=== PATIENT | female | born 1975 | race Caucasian/White ===

== ENCOUNTER → 2024-03-04 10:03 | Outpatient (REF) | payer OTHER, SELFPAY | LOC: HWWDC 10:03 | PROVIDERS: ATTENDING PHYSICIAN Physician Assistant Medical; FAMILY PHYSICIAN Family Medicine; REFERRING PHYSICIAN Nurse Practitioner Adult Health | DX: Z12.31 Encounter for screening mammogram for malignant neoplasm of breast (principal) | CPT/HCPCS: 77063; 77067 ==

== ENCOUNTER 2024-03-09 11:55 | Emergency (ER) | payer OTHER, SELFPAY ==
[2024-03-09 11:59] VITALS: BP 124/78
[2024-03-09 12:25] LABS: % Basophils 0.8 % (0-2); % Eosinophils 0.9 % (0-6); % Immature Granulocytes 0.4 % (0-0.5); % Lymphocytes 29.5 % (20.5-51.1); % Monocytes 8.8 % (1.7-9.3); % Neutrophils 59.6 % (42.2-75.2); Absolute Basophils 0.1 10^3/uL (0-0.2); Absolute Eosinophils 0.1 10^3/uL (0-0.7); Absolute Lymphocytes 2.2 10^3/uL (1.2-3.4); Absolute Monocytes 0.7 10^3/uL (0.1-0.6); Absolute Neutrophils 4.5 10^3/uL (1.4-6.5); Hematocrit 32.5 % (37.0-47.0); Hemoglobin 10.6 g/dL (12.0-16.0); Mean Corp Hgb Conc. 32.6 g/dL (33.0-37.0); Mean Corpuscular Hgb 26.4 pg (27.0-31.0); Mean Corpuscular Volume 80.8 fL (81.0-99.0); Mean Platelet Volume 10.7 fL (7.4-10.4); Nucleated Red Blood Cells % 0 %; Platelet Count 253 10^3/uL (130-400); Red Blood Cell Count 4.02 10^6/uL (4.20-5.40); Red Cell Dist. Width 13.5 % (11.5-14.5); White Blood Cell Count 7.5 10^3/uL (4.8-10.8)
[2024-03-09 12:34] LABS: PT 12.4 Sec (11.4-14.6)
[2024-03-09 12:39] LABS: ALT (SGPT) 20 U/L (0-35); AST (SGOT) 22 U/L (14-36); Albumin 4.1 g/dl (3.5-5.0); Alkaline Phosphatase 65 U/L (38-126); Blood Urea Nitrogen 13 mg/dl (7-17); Calcium 8.4 mg/dl (8.4-10.2); Carbon Dioxide 22 mmol/L (22-30); Chloride 103 mmol/L (98-107); Glucose 93 mg/dl (70-99); Potassium 4.4 mmol/L (3.5-5.1); Sodium 135 mmol/L (135-145); Total Bilirubin 0.3 mg/dl (0.2-1.3); eGFR > 60.00
--- NOTE | 2024-03-09 14:34 | ED.GENMED ---
History of Present Illness
General
Chief Complaint: DVT/Possible Blood Clot
Source: patient
Exam Limitations: none
Time Seen by Provider: 03/09/24 13:23
Nursing documentation reviewed up to this point in time: agreed with
History of Present Illness
History of Present Illness:
Patient is a 48-year-old female with past medical history of bariatric surgery, GERD, IBS, remote history of left lower extremity DVT which was provoked by travel/immobility not currently anticoagulated, who presents to the emergency department for
evaluation of left calf pain that started yesterday. Patient denies any known trauma, injury, overuse. Patient reports that she was recently started on exogenous hormones for perimenopause. She notes that she also traveled to [place]
approximately 9 days ago. Patient denies any swelling to the lower extremities. Patient denies any recent chest pain or shortness of breath.
Past History
Past History
ED Past Medical History: Asthma, GERD, Hypercholesterolemia, Psychiatric (Depression), Other (Cervical radiculopathy, left; chronic sinusitis), Other (Migraine headaches) and Other (DVT diagnosed 2017)
ED Past Surgical History: Other (Endoscopic sinus surgery. Gastric sleeve surgery 2012)
Patient has exhibited threatening behavior?: No
Social History
Tobacco: Non-smoker
Alcohol: Occasional
Drug: None
Personal:
Living: with family
Employment: Employed
Family History
Family History: Negative Early CAD
Review of Systems
Review of Systems
All Other Systems: Not applicable
Constitutional: Reports no symptoms
EENT: Reports no symptoms
Respiratory: Reports no symptoms
Cardiac: Reports no symptoms
ABD/GI: Reports no symptoms
Musculoskeletal: Reports other (Left calf pain, no lower extremity edema)
Skin: Reports no symptoms
Neurological: Reports no symptoms
Endocrine: Reports no symptoms
Hematologic/Lymphatic: Reports no symptoms
Psychiatric: Reports no symptoms
Phy Exam
General Physical Exam
General Presentation: well appearing and no apparent distress
General Skin: warm and dry
General Habitus: normal
General Mental: alert
General Hydration: appears well hydrated
Cardiovascular Exam
Cardiovascular Exam: regular rate/rhythm, no edema, no murmur and normal peripheral pulses
Pulmonary Exam
Pulmonary Exam: lungs clear, no respiratory distress, no rales, no crackles, no rhonchi, no stridor, no wheezing and no cough
Neurological Exam
Neurological Exam: alert, oriented x3, no motor deficits and speech normal
Musculoskeletal Exam
Musculoskeletal Exam: full ROM, no edema and other (Mild tenderness to palpation to the left posterior calf, no palpable cord, negative Homans' sign, 2+ DP pulse, sensation intact light touch distally)
Skin Exam
Skin Exam: normal color, warm/dry, no rash and no petechia
Psychiatric Exam
Psychiatric Exam: normal mood/affect
Course
Orders/Labs/Results
Orders:
Orders
03/09/24 11:56
US Periph Venous LOWER Ext LT Urgent
Comment:
Reason For Exam: pain
03/09/24 12:05
Complete Blood Count/With Diff Urgent
Comprehensive Metabolic Panel Urgent
PT/INR [Prothrombin Time] Urgent
Abnormal Lab Results
03/09/24
12:05
RBC 4.02 L 10^6/uL
(4.20-5.40)
Hgb 10.6 L g/dL
(12.0-16.0)
Hct 32.5 L %
(37.0-47.0)
MCV 80.8 L fL
(81.0-99.0)
MCH 26.4 L pg
(27.0-31.0)
MCHC 32.6 L g/dL
(33.0-37.0)
MPV 10.7 H fL
(7.4-10.4)
Absolute Monos (auto) 0.7 H 10^3/uL
(0.1-0.6)
03/09/24 12:05
03/09/24 12:05
Vital Signs
Initial and Last Documented VS:
Initial Vital Signs
Temp Pulse Resp BP Pulse Ox
98.7 F 85 18 124/78 98
03/09/24 11:59 03/09/24 11:59 03/09/24 11:59 03/09/24 11:59 03/09/24 11:59
Last Documented Vital Signs
Temp Pulse Resp BP Pulse Ox
98.7 F 85 18 124/78 98
03/09/24 11:59 03/09/24 11:59 03/09/24 11:59 03/09/24 11:59 03/09/24 11:59
MDM/Problems Addressed
Differential Diagnosis Includes:
DVT, muscle strain, electrolyte derangement
*Critical Care Note
Total Time (30-74mins, 75-104mins- exclusive of procedures): Not Applicable
Update Note
Update Note:
48-year-old female with history of DVT of the left lower extremity which was provoked by immobility/travel presents to the emergency department for evaluation of 1 day of left lower extremity pain. Patient denies chest pain or shortness of breath.
Patient is not currently anticoagulated. On arrival, patient's vital signs are stable, she is afebrile. On exam, patient is well-appearing, she is in no acute distress, she is neurovascularly intact. Labs were obtained while the patient was in
the waiting room and are nonactionable. DVT ultrasound demonstrates no evidence of DVT. At this time, the patient was reassured and I feel that she is safe for discharge to home with instructions on supportive care measures and outpatient PCP
follow-up. Patient educated on return precautions, she expressed understanding the plan and agreed.
ED Attending Note
-
Portions of this chart may have been created with voice recognition software.� Occasional wrong word or��sound alike� substitutions may have occurred due to the inherent limitations of voice recognition software.
Discharge Plan
Departure
Patient Disposition: Home (Routine Discharge)
Date of Disposition: 03/09/24
Time of Disposition: 15:06
Patient with high blood pressure during this ER visit?: No
Condition: Good
Covid-19: Not Applicable
Discharge Problem:
Pain of left calf
Instructions: Muscle, joint, and bone pain - Discharge instructions
Prescriptions:
No Action
montelukast 10 MG tablet
10 mg PO QPM
omeprazole 40 MG capsule,delayed release(DR/EC)
40 mg PO DAILY
escitalopram oxalate 10 MG tablet
15 mg PO DAILY
acetaminophen 500 mg Tablet
1,000 mg PO Q6H PRN (Reason: pain)
Linzess 290 mcg Capsule
290 mcg PO DAILY
Referrals:
Alisa Abrams PA-C [Family Provider] - Follow up in 2-3 days
Activity Restrictions/Additional Instructions:
You were seen in the emergency department for evaluation of pain of your left calf. While you were in the emergency department you had blood work performed which shows no dangerous abnormalities. You had an ultrasound of your leg which
demonstrates no evidence of a blood clot in your leg. The exact cause of your pain is unclear but it could be due to a sprain or strain of the soft tissue of your lower leg, it could also be due to your sciatica. You may take ibuprofen or Tylenol
as needed for pain. You may alternate ice and heat to the affected area for 20 minutes at a time 4-5 times a day. Please follow-up with your primary care provider to ensure improvement in your symptoms. Please return to the emergency department
if you develop severe pain, swelling, redness, color change of the foot or toes, or for any other worsening or concerning symptoms.
Interventions
Interventions:
*Risk Screen - Suicide Last Done: 03/09/24 11:59
*General Assessment Last Done: 03/09/24 11:59
*Neglect/Abuse Screening Last Done: 03/09/24 11:59
ED- Fall Risk Assessment Last Done: 03/09/24 15:25
*ED COVID-19 Vaccine History Last Done: 03/09/24 11:59
*Nursing Disposition Last Done: 03/09/24 15:25
ED- Cardiac Assessment Last Done: 03/09/24 15:25
ED- Pulmonary Assessment Last Done: 03/09/24 15:25
ED-Peripheral Vascular Assessment Last Done: 03/09/24 15:25
ED-Skin Assessment Last Done: 03/09/24 15:25
Discharge Date and Time
Discharge Date/Time: 03/09/24 15:26
Print Language: ROMANIAN
== END 2024-03-09 15:26 | disposition home or self-care (01) ==
LOC: EMR 11:55
PROVIDERS: Emergency Medicine; EMERGENCY PHYSICIAN Emergency Medicine; FAMILY PHYSICIAN Physician Assistant Medical
DX: M79.662 Pain in left lower leg (principal); Z86.718 Personal history of other venous thrombosis and embolism; K21.9 Gastro-esophageal reflux disease without esophagitis
CPT/HCPCS: 99284; 80053; 85025; 85610; 93971